=== PATIENT | male | born 1960 | race Caucasian/White ===

== ENCOUNTER 2025-05-03 10:50 | Emergency (ER) | payer OTHER, SELFPAY ==
[2025-05-03] VITALS (8 sets, daily range): BP systolic 186–259; BP diastolic 112–136; PULSE 36–95; RESP 16–20; TEMP 36.7; O2SAT 95–96
--- NOTE | 2025-05-03 10:59 | ECG_ITS ---
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 Measurements Intervals [place] Rate: 93 P: 50 [place]: 162 QRS: -4 QRSD: 102 T: 111 QT: 378 QTc: 472 Interpretive Statements SINUS RHYTHM WITH SINUS ARRHYTHMIA POSSIBLE LEFT ATRIAL ENLARGEMENT [-0.1mV P-WAVE IN V1/V2] INCOMPLETE RIGHT BUNDLE BRANCH BLOCK [90+ ms QRS DURATION, TERMINAL R IN V1/V2, 40+ ms S IN I/aVL/V4/V5/V6] ST DEVIATION AND MODERATE T-WAVE ABNORMALITY, CONSIDER LATERAL ISCHEMIA [-0.1+ mV T-WAVE IN I/aVL/V5/V6] No previous ECG available for comparison Electronically Signed On 05-04-2025 08:52:19 TIMBER HARVESTER OPERATOR by Kesha Alvarado M.D. [id number]
--- NOTE | 2025-05-03 10:59 | XR_ITS ---
WS: [id number] XR chest 1V portable [id number] REASON FOR EXAM: shortness of breath FINDINGS: Moderate tortuosity and ectasia of the ascending and descending thoracic aorta. Mild cardiomegaly. Mild central pulmonary venous congestion. Calcified granulomatous disease bilaterally. No acute pulmonary parenchymal or pleural abnormality. Mild degenerative spondylosis in the mid and lower thoracic spine. XR/XR chest 1V portable [id number] IMPRESSION: Mild cardiomegaly and central pulmonary venous congestion. No acute chest abnor mality.
--- NOTE | 2025-05-03 10:59 | W.ED.GENADLT ---
HPI - General Adult General: Chief complaint: General Medical Stated complaint: [facility], abnormal ekg Time Seen by Provider: 05/03/25 10:56 History of Present Illness: 65-year-old man with a history of obesity who presents emergency room from clinic with hypertension and an abnormal EKG. He says he feels about like he always does. He has not been to a doctor in 20 years. He said he always feels a little bit short of breath. He has intermittent mild swelling in his legs. No chest pain. No abdominal pain. No nausea or vomiting. No fevers or cough. Related Data Previous Rx's ?Medication ?Instructions ?Recorded lisinopril 20 1 tab PO DAILY #30 tabs 05/03/25 mg-hydrochlorothiazide 25 mg tablet Allergies Allergy/AdvReac Type Severity Reaction Status Date / Time No Known Allergies Allergy Verified 05/03/25 10:56 Review of Systems Narrative: Constitutional symptoms: Negative except as documented in HPI. Skin symptoms: Negative except as documented in HPI. Eye symptoms: Negative except as documented in HPI. ENMT symptoms: Negative except as documented in HPI. Respiratory symptoms: Negative except as documented in HPI. Cardiovascular symptoms: Negative except as documented in HPI. Gastrointestinal symptoms: Negative except as documented in HPI. Genitourinary symptoms: Negative except as documented in HPI. Musculoskeletal symptoms: Negative except as documented in HPI. Neurologic symptoms: Negative except as documented in HPI. Psychiatric symptoms: Negative except as documented in HPI. Endocrine symptoms: Negative except as documented in HPI. Physical Exam Narrative: EXAM NARRATIVE: General: Alert, no acute distress. Skin: Warm, dry. Head: Normocephalic, atraumatic. Neck: Supple, trachea midline. Eye: Extraocular movements are intact. Ears, nose, mouth and throat: mucosa moist. Cardiovascular: Regular, Normal peripheral perfusion. Respiratory: Lungs are clear to auscultation, respirations are non-labored, breath sounds are equal, Symmetrical chest wall expansion. Gastrointestinal: Soft, Nontender, Non distended Musculoskeletal: Normal ROM, no deformity. Neurological: Alert and oriented, No focal neurological deficit observed. Psychiatric: Cooperative, appropriate mood & affect. Course Vital Signs: Vital signs: Vital Signs Temperature 98.0 F 05/03/25 10:59 Pulse Rate 90 05/03/25 12:54 Respiratory Rate 16 05/03/25 12:54 Blood Pressure 186/114 05/03/25 12:54 Pulse Oximetry 95 05/03/25 12:54 Oxygen Delivery Me thod Room Air 05/03/25 11:34 MDM - General Adult Medical Decision Making Medical decision making Patient's reason for coming to the emergency room: Hypertension and an abnormal EKG in clinic today. Social determinants: Retired. Patient [facility] because he could not afford insurance until now. I reviewed the patient's medical record. Patient has no previous visits to this facility. I reviewed the patient's current home meds Patient takes no chronic medications. Alternate historians: None Differential diagnosis including but not limited to and based on the above HPI, review of systems and physical exam: Patient presents with hypertension and an abnormal EKG: Essential hypertension. Stroke. acute coronary syndrome. kidney failure. congestive heart failure. anxiety. Orders placed to evaluate differential diagnosis based on the above differential, HPI and physical exam EKG: Time 10:58 AM. Rate 93. Sinus rhythm with sinus dysrhythmia, diffuse ST depression/nonspecific ST changes. Incomplete right bundle branch block. No ectopy., No ST-T changes, no ectopy. This was reviewed and interpreted by myself the ER physician at 11:02 AM EKG: Time 11:30 AM. Rate 90. Sinus rhythm with sinus dysrhythmia, diffuse ST depression/nonspecific ST changes. Incomplete right bundle branch block. No ectopy., No ST-T changes, no ectopy. This was reviewed and interpreted by myself the ER physician at 11:34 AM. No significant changes from previous EKG Chest x-ray: Borderline cardiomegaly. No infiltrates or effusions. This was reviewed and interpreted by myself the emergency room physician. I also reviewed the radiology report. Lab Review: Laboratory results were reviewed and interpreted by myself the emergency room physician. No leukocytosis. No anemia. No renal failure. Initial troponin is 20. Assessment of risk: Level of risk: Hospitalization considerations: Reexamination: Blood pressure came down some to the 180s over 114. Patient is adamant he is not staying any longer. I do offered admission and he says he absolutely will not. He says I have made it this long without any trouble I can make it a few more days . I discussed the risks of going home versus getting his blood pressure under control and he expresses understanding. He is had no chest pain. No overt shortness of breath. Lab Data 05/03/25 11:21 05/03/25 11:21 Radiology Impressions Chest X-Ray 05/03/25 10:59 IMPRESSION: Mild cardiomegaly and central pulmonary venous congestion. No acute chest abnormality. Laboratory Results WBC 7.88 10^3/uL (3.29-11.43) 05/03/25 11:21 RBC 4.80 10^6/uL (3.85-5.65) 05/03/25 11:21 Hgb 15.70 g/dL (11.27-16.99) 05/03/25 11:21 Hct 47.0 % (37-53) 05/03/25 11:21 MCV 97.9 fl (82-101) 05/03/25 11:21 MCH 32.7 pg (27-33) 05/03/25 11:21 MCHC 33.4 g/dL (30-55) 05/03/25 11:21 RDW 13.6 % (12.1-15.1) 05/03/25 11:21 Plt Count 207 10^3/cmm (157-399) 05/03/25 11:21 MPV 9.9 fL (7.4-10.4) 05/03/25 11:21 Neut % (Auto) 63.6 % 05/03/25 11:21 Lymph % (Auto) 23.6 % 05/03/25 11:21 Sharkey % (Auto) 8.5 % 05/03/25 11:21 Eos % (Auto) 2.9 % 05/03/25 11:21 Baso % (Auto) 1.0 % 05/03/25 11:21 Neut # (Auto) 5.01 10^3/uL (1.8-7.7) 05/03/25 11:21 Lymph # (Auto) 1.9 10^3/uL (0.8-4.8) 05/03/25 11:21 Sharkey # (Auto) 0.7 10^3/uL (0.2-0.9) 05/03/25 11:21 Eos # (Auto) 0.2 10^3/uL (0.0-0.8) 05/03/25 11:21 Baso # (Auto) 0.1 10^3/uL (0.0-0.1) 05/03/25 11:21 Nucleated RBC % (auto) 0 % 05/03/25 11:21 Nucleated RBCs # 0.0 /100WBC 05/03/25 11:21 PT 13.10 SECONDS (12.1-14.9) 05/03/25 11:21 INR 0.93 (0.8-1.2) 05/03/25 11:21 APTT 25.3 SECONDS (23.9-36.7) 05/03/25 11:21 Sodium 141 mmol/L (136-145) 05/03/25 11:21 Potassium 4.1 mmol/L (3.5-5.1) 05/03/25 11:21 Chloride 104 mmol/L (98-107) 05/03/25 11:21 Carbon Dioxide 22 mmol/L (22-29) 05/03/25 11:21 Anion Gap 19.1 (5-19) H 05/03/25 11:21 BUN 12 mg/dL (8-23) 05/03/25 11:21 Creatinine 1.0 mg/dL (0.7-1.2) 05/03/25 11:21 GFR Calculation 75.5 mL/min (90-130) L 05/03/25 11:21 Glucose 102 mg/dL (65-115) 05/03/25 11:21 Calculated Osmolality 292 mOsm/kg (285-295) 05/03/25 11:21 Calcium 9.0 mg/dL (8.5-10.5) 05/03/25 11:21 Total Bilirubin 0.5 mg/dL (0.15-1.2) 05/03/25 11:21 AST 22 U/L (0-40) 05/03/25 11:21 ALT 25 U/L (0-41) 05/03/25 11:21 Alkaline Phosphatase 80 U/L (40-130) 05/03/25 11:21 Troponin T Baseline 20 ng/L (0-15) H 05/03/25 11:21 NT-Pro-B Natriuret Pep 576 pg/mL (0-125) H 05/03/25 11:21 Total Protein 6.7 g/dL (6.6-8.7) 05/03/25 11:21 Albumin 4.2 g/dL (3.5-5.2) 05/03/25 11:21 Globulin 2.5 g/dL (1.3-4.6) 05/03/25 11:21 All radiology interpretation(s) finalized by discharge Discharge Plan Discharge Patient Disposition: Home Clinical Impression: Accelerated hypertension Condition: Stable Prescriptions: New lisinopril-hydrochlorothiazide 20-25 mg tablet 1 tab PO DAILY Qty: 30 1RF Discharge Orders: Discharge ED (Routine); Ordered 05/03/25 Ordered By: Debra Finley Referrals: Elvin Jacome MD [Primary Care Provider, Family Practice] Discharge Diet: Usual diet Discharge Activity: Increase activity as tolerated Patient Instructions: Hypertension (ED), Opioid Safety, Pain Management, Patient Portal & Yuki Instructions Activity Restrictions/Additional Instructions: If you develop chest pain, shortness of breath or other concerning symptoms please seek emergent medical attention Thank you for choosing [facility] for your healthcare needs today. You have been screened and evaluated and felt safe for discharge. Health conditions do change or evolve sometimes and as such it is important that you follow up with your Primary Doctor to be re checked, 3-5 days is a general good time frame for follow up. You are always welcome to return to the ED for re assessment if your symptoms are worsening or you have new concerns Print Language: Mohawk Coding Level of Care Code ED Music Orchestrator for Ngozi Fowler
--- NOTE | 2025-05-03 11:24 | ECG_ITS ---
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 Measurements Intervals [place] Rate: 90 P: 44 [place]: 159 QRS: 7 QRSD: 92 T: 127 QT: 379 QTc: 465 Interpretive Statements SINUS RHYTHM POSSIBLE LEFT ATRIAL ENLARGEMENT [-0.1mV P-WAVE IN V1/V2] INCOMPLETE RIGHT BUNDLE BRANCH BLOCK [90+ ms QRS DURATION, TERMINAL R IN V1/V2, 40+ ms S IN I/aVL/V4/V5/V6] ST DEVIATION AND MODERATE T-WAVE ABNORMALITY, CONSIDER LATERAL ISCHEMIA [-0.1+ mV T-WAVE IN I/aVL/V5/V6] Compared to ECG 05/03/2025 10:58:50 Sinus arrhythmia no longer present T-wave abnormality still present Possible ischemia still present Electronically Signed On 05-04-2025 08:52:10 BAG CHECKER by Kesha Alvarado M.D. [id number]
[2025-05-03 11:32] LABS: Hematocrit 47.0 % (37-53); Hemoglobin 15.70 g/dL (11.27-16.99); Mean Corpuscular HGB Conc 33.4 g/dL (30-55); Mean Corpuscular Hemoglobin 32.7 pg (27-33); Mean Corpuscular Volume 97.9 fl (82-101); Nucleated Red Blood Cells % 0 %; Platelet Count 207 10^3/cmm (157-399); Red Blood Count 4.80 10^6/uL (3.85-5.65); White Blood Count 7.88 10^3/uL (3.29-11.43)
[2025-05-03] MEDS: hyDRALAzine 20 mg/mL INJ 1 mL IVP (11:52)
[2025-05-03 11:53] LABS: INR 0.93 (0.8-1.2); Prothrombin Time 13.10 SECONDS (12.1-14.9)
[2025-05-03 11:54] LABS: Partial Thromboplastin Time 25.3 SECONDS (23.9-36.7)
[2025-05-03 11:59] LABS: Troponin(5th) Baseline 20 ng/L (0-15)
[2025-05-03 12:00] LABS: Alanine Aminotransferase 25 U/L (0-41); Albumin Level 4.2 g/dL (3.5-5.2); Alkaline Phosphatase 80 U/L (40-130); Anion Gap 19.1 (5-19); Aspartate Amino Transferase 22 U/L (0-40); Blood Urea Nitrogen 12 mg/dL (8-23); Calcium 9.0 mg/dL (8.5-10.5); Carbon Dioxide 22 mmol/L (22-29); Chloride 104 mmol/L (98-107); Globulin 2.5 g/dL (1.3-4.6); Glucose 102 mg/dL (65-115); NT Pro B Type Natriuretic Pept 576 pg/mL (0-125); Osmolality Calculated 292 mOsm/kg (285-295); Potassium 4.1 mmol/L (3.5-5.1); Sodium 141 mmol/L (136-145); Total Protein 6.7 g/dL (6.6-8.7)
--- NOTE | 2025-05-03 13:00 | ECG_ITS ---
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 Measurements Intervals [place] Rate: 92 P: 12 [place]: 172 QRS: 58 QRSD: 87 T: -13 QT: 376 QTc: 466 Interpretive Statements SINUS RHYTHM POSSIBLE LEFT ATRIAL ENLARGEMENT [-0.1mV P-WAVE IN V1/V2] POSSIBLE RIGHT VENTRICULAR CONDUCTION DELAY [RSR (QR) IN V1/V2] NONSPECIFIC ST & T-WAVE ABNORMALITY Compared to ECG 05/03/2025 11:30:00 Incomplete right bundle-branch block no longer present Possible ischemia no longer present T-wave abnormality still present Electronically Signed On 05-05-2025 00:11:13 BRICKLAYER APPRENTICE by Kesha Alvarado M.D. [id number]
== END 2025-05-03 13:07 | disposition home or self-care (01) ==
PROVIDERS: Emergency Provider Emergency Medicine; PCP Family Medicine Geriatric Medicine
DX: I10 Essential (primary) hypertension (principal)
CPT/HCPCS: 36415; 71045; 80053; 83880; 84484; 85025; 85610; 85730; 93005; 96374; 99285; J0360

== ENCOUNTER → 2025-05-16 11:15 | Outpatient (BNVA) | payer OTHER, SELFPAY | PROVIDERS: PCP Family Medicine Geriatric Medicine; Visit Provider Internal Medicine Cardiovascular Disease | DX: R07.9 Chest pain, unspecified (principal); R94.31 Abnormal electrocardiogram [ECG] [EKG] | CPT/HCPCS: 93005; 99204 ==

== ENCOUNTER 2025-05-23 07:54 | Outpatient (CLI) | payer OTHER, SELFPAY ==
--- NOTE | 2025-05-23 | ECG_ITS ---
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 Interpretive Statements Procedure: A total of 0.4 mg of Lexiscan was infused over 20 seconds. The stress phase was continued for a total of 5 minutes. Sestamibi was injected 20 seconds after the Lexiscan infusion. Findings: At baseline the patient was hypertensive with a blood pressure of 189 over off 112 mmHg. After Lexiscan injection the blood pressure decreased to 170/77 and the heart rate increased from 87 bpm to 101 bpm. At the end of recovery the patient's blood pressure was 176/107 mmHg with a heart rates 96 bpm. The baseline EKG showed normal sinus rhythm with a heart rate of 90 bpm, diffuse mild ST depression in T wave inversion in the lateral leads. No change in ST segments or T waves from baseline. No arrhythmias during stress test. The patient had no chest pain during the stress test. Conclusion: 1. Stress EKG negative for ischemia and arrhythmia. 2. No Lexiscan induced chest pain 3. Normal blood pressure and heart rate response. Patient with severe hypertension at baseline. 4. Nuclear myocardial perfusion scan pending; see separate report. Electronically Signed On 05-27-2025 18:54:13 CUSTODIAN MANAGER by Wilder Berg M.D. [id number]
[2025-05-23 07:45] VITALS: BMI 47.5
--- NOTE | 2025-05-23 08:32 | NMCV_ITS ---
NM lexi perf SPECT r/s* [id number] James Carl Age: 65 Gender: M : 1960 Exam Date: 05/23/2025 08:46 Ordering Phys: Wilder Berg MD ([email or web address]) Technologist: AWAIS Ngo Exam Location: [facility] Indications: cp STRESS TEST Please see separate stress test report in [facility] for full findings IMAGE PROTOCOL Rest/Stress 1 Lexiscan Day Radiopharmaceutical Dose (mCi) Administration Site Administered by Rest: Tc-99m 10.6 IV Mona Echols, ANTIQUE FURNITURE REPRODUCER Sestamibi Stress:Tc-99m 32.8 IV Mona Echols, ANTIQUE FURNITURE REPRODUCER Sestamibi Rest: 23-May-2025 60 Discovery 630 Stress: 23-May-2025 30 Discovery 630 0.4mg Lexiscan. Supine position only as patient was unable to lay prone. SPECT RESULTS Technical Quality: Good Raw Data Analysis: Normal Image Corrections: No attenuation or motion correction applied Summed Stress Score: 5 Summed Rest Score: 2 Summed Difference Score: 3 PERFUSION FINDINGS Large area of fixed perfusion defect noted in basal to distal inferior wall suggestive of old myocardial infarction FUNCTIONAL RESULTS (calculated via Gated SPECT) Stress Image LV EF (%): 60 Stress EDV (mL):137 TID: 1.03 Stress ESV (mL):55 FUNCTIONAL FINDINGS: Basal to mid inferior wall hypokinesis IMPRESSIONS Large area of old myocardial infarction versus scarring noted in basal to mid inferior wall without clemente-infarct ischemia. This study is negative for ischemia. Doug Finch MD (Electronically Signed) Final Date: 25 May 2025 08:05 S
[2025-05-23 09:39] VITALS: BP 176/107; PULSE 95
== END 2025-05-23 07:55 | disposition home or self-care (01) ==
LOC: CDL 07:57
PROVIDERS: PCP Family Medicine Geriatric Medicine; Visit Provider Internal Medicine Cardiovascular Disease
DX: R07.9 Chest pain, unspecified (principal); I25.2 Old myocardial infarction
CPT/HCPCS: 36415; 78452; 93017; 96374; A9500; J2785

== ENCOUNTER 2025-05-31 08:56 | Outpatient (CLI) | payer OTHER, SELFPAY ==
--- NOTE | 2025-05-31 09:15 | USCV_ITS ---
James Carl Age: 65 Gender: M : 1960 Exam Date: 05/31/2025 09:13 Ordering Phys: Wilder Berg MD ([email or web address]) Technologist: Exam Location: [facility] [place] Indication: cp sob BP: 166 / 107 HR: 86 Rhythm: Sinus Technical Quality: Adequate MEASUREMENTS (Male / Female) Normal Values 2D ECHO LV Diastolic Diameter PLAX 3.7 cm 4.2 - 5.9 / 3.9 - 5.3 cm IVS Diastolic Thickness 1.5 cm 0.6 - 1.0 / 0.6 - 0.9 cm IVS Systolic Thickness 2.2 cm LVPW Diastolic Thickness 1.4 cm 0.6 - 1.0 / 0.6 - 0.9 cm LVPW Systolic Thickness 2.5 cm LVOT Diameter 2.1 cm LV Ejection Fraction 2D Teich 62.5 % LV Ejection Fraction MOD 4C 64.2 % LV Ejection Fraction MOD 2C 72.5 % LV Ejection Fraction 2C AL 71.0 % LA Diameter 4.4 cm RA Systolic Volume 4C AL 69.4 ml RA Systolic Volume 4C MOD 67.3 ml LA Sys Volume AL 110.8 cm cubed Aorta at Sinotubular Diameter 3.3 cm M-MODE LA Ao Ratio MM 1.3 AV Cusp Separation MM 2.2 cm DOPPLER AV Peak Velocity 128.0 cm/s LVOT Peak Velocity 138.0 cm/s AV Area Cont Eq vti 4.4 cm squared AV Area Cont Eq pk 3.7 cm squared MV Peak Velocity 109.0 cm/s MV Area PHT 5.0 cm squared TR Peak Velocity 183.0 cm/s TR Peak Gradient 13.4 mmHg TV Peak E Velocity 97.0 cm/s PV Peak Velocity 120.0 cm/s FINDINGS Left Ventricle Normal left ventricular cavity size and systolic function with normal left ventricular ejection fraction 64%. Normal left ventricular diastolic function. Mild to moderate concentric left ventricular hypertrophy. Right Ventricle Normal right ventricular size and systolic function. RVSP could not be calculated due to incomplete tricuspid regurgitation velocity profile. Right Atrium Normal right atrial size. Left Atrium Mild left atrial enlargement IA Septum Normal appearance of the interatrial septum. Mitral Valve Normal mitral valve structure. No mitral valve stenosis or regurgitation. Aortic Valve Normal aortic valve structure. No aortic valve stenosis or regurgitation. Tricuspid Valve Normal tricuspid valve structure. No tricuspid valve stenosis or regurgitation. Pulmonic Valve Normal pulmonic valve structure. No pulmonic valve stenosis or regurgitation. Pericardium No pericardial effusion. Aorta Normal diameter of the aortic root and ascending thoracic aorta. IVC IVC not well-visualized CONCLUSIONS Normal left ventricular cavity size and systolic function, EF 64% Normal left ventricular diastolic function by available parameters. TR jet not present to measure pulmonary pressure. Mild to moderate concentric left ventricular hypertrophy Normal right ventricular size and systolic function. No significant valvular abnormalities. Wilder Berg MD, FACC (Electronically Signed) Final Date: 15 June 2025 13:07 S
== END 2025-05-31 08:57 | disposition home or self-care (01) ==
LOC: RAD 08:57
PROVIDERS: PCP Family Medicine Geriatric Medicine; Visit Provider Internal Medicine Cardiovascular Disease
DX: I10 Essential (primary) hypertension (principal); I51.7 Cardiomegaly; Z12.11 Encounter for screening for malignant neoplasm of colon
CPT/HCPCS: 93306; 99213